=== PATIENT | male | born 1950 | race Caucasian/White ===

== ENCOUNTER → 2018-07-29 | Outpatient (CLI) | payer MEDICARE ==
[~2018-07-29] MED LIST: CO Q10 PO; EZET10TA18 PO; GLUC-121 PO; HYDR-3307 PO; IBUP200C8 PO; LISI-170 PO; PRAV80TA2 PO
[2018-07-29 10:32] LABS: BASOPHILS # (AUTO) 0.02 x10^3/uL (0-0.1); BASOPHILS % (AUTO) 0 % (0-1); EOSINOPHILS # (AUTO) 0.13 x10^3/uL (0-0.4); EOSINOPHILS % (AUTO) 2 % (1-7); LYMPHOCYTES % (AUTO) 29 % (22-44); MD NO; MEAN CORPUSCULAR HEMOGLOBIN 29.8 pg (27.5-34.5); MEAN CORPUSCULAR HGB CONC 33.8 g/dL (33.2-36.2); MEAN PLATELET VOLUME 8.1 fL (7.4-10.4); MONOCYTES % (AUTO) 9 % (2-9); NEUTROPHILS % (AUTO) 60 % (42-75); PLATELET COUNT 280 x10^3/uL (130-400); RED BLOOD COUNT 5.73 x10^6/uL (4.38-5.82); RED CELL DISTRIBUTION WIDTH 13.2 % (9.4-14.8)
[2018-07-29 10:33] LABS: MICROSCOPIC INDICATED
[2018-07-29 10:40] LABS: INTERNATIONAL NORMALIZED RATIO 0.96 (0.93-1.1); PROTHROMBIN TIME 9.9 Seconds (9.6-11.5)
[2018-07-29 10:41] LABS: ALANINE AMINOTRANSFERASE 58 U/L (12-78); ALBUMIN 4.6 g/dL (3.4-5.0); ANION GAP 7 mmol/L (5-15); CALCIUM 9.2 mg/dL (8.5-10.1); CHLORIDE 108 mmol/L (98-107)
[2018-07-29 10:43] LABS: ALKALINE PHOSPHATASE 63 U/L (45-117); BILIRUBIN,TOTAL 0.5 mg/dL (0.2-1.0); CREATININE 1.05 mg/dL (0.7-1.3); TOTAL PROTEIN 7.9 g/dL (6.4-8.2)
[2018-07-29 10:43] LABS: CULTURE INDICATED? NO
== END | disposition home or self-care (01) ==
LOC: STAR 09:31
PROVIDERS: ATTEND Neurological Surgery
DX: Z01.818 Encounter for other preprocedural examination (principal); M51.36 Other intervertebral disc degeneration, lumbar region; M48.061 Spinal stenosis, lumbar region without neurogenic claudication
CPT/HCPCS: 36415; 71046; 72110; 80053; 81001; 85025; 85610; 85730; 93005

== ENCOUNTER 2018-08-07 10:29 | Day surgery (SDC) | payer MEDICARE ==
[~2018-08-07] VITALS: Ht 177.8 cm; Wt 101.5 kg
[~2018-08-07 10:29] MED LIST changes: +BACITRACIN 50,000 UNIT ONE; +BUPIVACAINE 0.25% ONE; +BUPIVACAINE/PF-EPI 0.5% 1:200K ONE; +THROMBIN 5,000 UNIT VIAL TP ONE
[2018-08-07 10:51] VITALS: BP 151/96
[2018-08-07] MEDS ORDERED: LACTATED RINGERS 1,000 ML IV SCH (10:58)
[2018-08-07] MEDS ORDERED: FENTANYL PF 250 MCG/5ML ONE (11:08)
[2018-08-07] MEDS ORDERED: MIDAZOLAM 1 MG/ML, 2ML ONE (11:08)
[2018-08-07] MEDS ORDERED: ROCURONIUM 10MG/ML,5ML ONE (13:01)
[2018-08-07] MEDS ORDERED: DEXAMETHASONE 4 MG/ML, 1ML ONE (13:01)
[2018-08-07] MEDS ORDERED: PROPOFOL 10 MG/ML, 20ML ONE (13:01)
[2018-08-07] MEDS ORDERED: ONDANSETRON 2MG/ML, 2ML ONE (13:01)
[2018-08-07] MEDS ORDERED: GLYCOPYRROLATE 0.2MG/1ML, 5ML ONE (13:01)
[2018-08-07] MEDS ORDERED: CEFAZOLIN 1,000 MG ONE (13:01)
[2018-08-07] MEDS ORDERED: SUCCINYLCHOLINE 20 MG/ML, 10ML ONE (13:01)
[2018-08-07] MEDS ORDERED: NEOSTIGMINE 1 MG/ML, 10ML ONE (13:01)
[2018-08-07] MEDS ORDERED: BUPIVACAINE LIPOSOME/PF 20ML INFIL ONE (13:28)
[2018-08-07] MEDS ORDERED: FENTANYL PF 100 MCG/2ML IV PRN (13:30)
[2018-08-07] MEDS ORDERED: DIAZEPAM 5 MG/ML, 2ML IVPush PRN (13:30)
[2018-08-07] MEDS ORDERED: MEPERIDINE/PF 25MG/0.5ML IVPush PRN (13:30)
[2018-08-07] MEDS ORDERED: ONDANSETRON ODT 8 MG PO PRN (13:30)
[2018-08-07] MEDS ORDERED: MORPHINE SULFATE 4 MG/ML, 1ML IVPush PRN ×2 (13:30→14:30)
[2018-08-07] MEDS ORDERED: PROMETHAZINE 25 MG/ML, 1ML IV PRN (13:30)
[2018-08-07] MEDS ORDERED: OXYcodone 5 MG/5 ML ORAL.SOL UDC PO PRN (13:30)
[2018-08-07] MEDS ORDERED: ONDANSETRON 2MG/ML, 2ML IV PRN (13:30)
[2018-08-07] MEDS ORDERED: HYDROmorphone 1 MG/ML, 1ML IV PRN (13:30)
[2018-08-07] MEDS ORDERED: ACETAMINOPHEN 325 MG TABLET PO PRN (13:30)
[2018-08-07] MEDS ORDERED: FENTANYL PF 100 MCG/2ML ONE (13:43)
[2018-08-07] MEDS ORDERED: BUPIVACAINE/PF 0.25% EPIDPUSH ONE (14:09)
[2018-08-07] MEDS ORDERED: FENTANYL PF 100 MCG/2ML EPIDPUSH ONE (14:10)
[2018-08-07] MEDS ORDERED: OXYcodone/APAP 5/325MG TABLET PO PRN (14:30)
[2018-08-07] MEDS ORDERED: DIPHENHYDRAMINE 50 MG/ML, 1ML IVPush PRN (14:30)
[2018-08-07] MEDS ORDERED: HYDROcodone/APAP 5/325 TABLET PO PRN (14:30)
[2018-08-07] MEDS ORDERED: ONDANSETRON 2MG/ML, 2ML IVPush PRN (14:30)
[2018-08-07] MEDS ORDERED: BISACODYL 10 MG SUPP PR PRN (14:30)
[2018-08-07] MEDS ORDERED: CYCLOBENZAPRINE 10 MG TABLET PO PRN (14:30)
[2018-08-07] MEDS ORDERED: PHARMACY MAY ADJ FOR RENAL FX MC PRN (14:30)
[2018-08-07] MEDS ORDERED: HYDROcodone/APAP 10/325 MG TABLET PO PRN (14:30)
[2018-08-07] MEDS ORDERED: D5%-0.9% NACL+KCL 20MEQ 1,000 ML IV SCH (14:30)
[2018-08-07] MEDS ORDERED: CEFAZOLIN PMX 1GM/50ML 50 ML IVPB SCH (14:30)
[2018-08-07] MEDS ORDERED: PROMETHAZINE 25 MG/ML, 1ML IM PRN (14:30)
[2018-08-07] MEDS ORDERED: SENNA/DOCUSATE TABLET PO PRN (14:30)
[2018-08-07] MEDS ORDERED: LABETALOL 5MG/ML, 20ML ONE (14:34)
[2018-08-07] MEDS: LABETALOL 5MG/ML, 20ML IV PRN ×3 (14:44→15:00)
[2018-08-07] MEDS ORDERED: MEPERIDINE/PF 50 MG/ML ONE (14:47)
[2018-08-07] MEDS ORDERED: hydrALAzine 20 MG/ML, 1ML ONE (14:54)
[2018-08-07] MEDS ORDERED: hydrALAzine 20 MG/ML, 1ML IV PRN (15:00)
[2018-08-07] MEDS ORDERED: SODIUM CHLORIDE FLUSH 10ML SYR IVF SCH (21:00)
[2018-08-07] MEDS ORDERED: TEMPLATE NON-FORMULARY MED. (Pravastatin Sodium** 80 MG) PO SCH (21:00)
[2018-08-08] MEDS ORDERED: EZETIMIBE 10 MG TABLET PO SCH (09:00)
[2018-08-08] MEDS ORDERED: LISINOPRIL 20 MG TABLET PO SCH (09:00)
== END 2018-08-07 16:55 | disposition home or self-care (01) ==
LOC: OUT 10:29
PROVIDERS: ATTEND Neurological Surgery
DX: M54.16 Radiculopathy, lumbar region (principal); M48.061 Spinal stenosis, lumbar region without neurogenic claudication; I10 Essential (primary) hypertension; I25.10 Atherosclerotic heart disease of native coronary artery without angina pectoris
CPT/HCPCS: 63042; 63044; 72100; C9290; J0330; J0690; J1100; J2175; J2250; J2405; J2704; J2710; J3010; J3490; J7120